=== PATIENT | male | born 1975 | race American Indian/Alaskan Native ===

== ENCOUNTER 2017-04-19 14:37 | Emergency (ER) | payer MEDICAID ==
[2017-04-19 16:36] LABS: Basophils % (Auto) 0.7 % (0.0-1.8); Hematocrit 37.3 % (35.5-45.6); Hemoglobin 12.1 gm/dl (11.8-15.2); Mean Corpuscular HGB Conc 33 % (32-34); Mean Corpuscular Hemoglobin 28 pg (28-32); Mean Corpuscular Volume 88 fl (84-94); Platelet Count 172 K/mm3 (140-440); Red Blood Count 4.26 M/mm3 (3.65-5.03); Red Cell Distribution Width 18.2 % (13.2-15.2); White Blood Count 8.3 K/mm3 (4.5-11.0)
[2017-04-19 17:00] LABS: Alanine Aminotransferase 8 units/L (7-56); Albumin 3.8 g/dL (3.9-5); Albumin/Globulin Ratio 0.8 %; Alkaline Phosphatase 45 units/L (35-129); Anion Gap 18 mmol/L; BUN/Creatinine Ratio 15.71; Blood Urea Nitrogen 11 mg/dL (9-20); Calcium 9.6 mg/dL (8.4-10.2); Carbon Dioxide 26 mmol/L (22-30); Chloride 104.4 mmol/L (98-107); Glucose 92 mg/dL (75-100); Potassium 4.6 mmol/L (3.6-5.0); Sodium 144 mmol/L (137-145); Total Protein 8.6 g/dL (6.3-8.2)
--- NOTE | 2017-04-19 17:13 | Emergency Department Report ---
ED Seizure HPI - General Chief Complaint: Medical Clearance Stated Complaint: SHAKING Time Seen by Provider: 04/19/17 16:26 Source: EMS Mode of arrival: Stretcher Limitations: Physical Limitation - History of Present Illness Initial Comments: 42 yo a past medical history seizures, GERD, and myoclonic presents to the hospital with increased tremors and insomnia. Patient was having blinking type seizures but that improved with starting Vimpat. Patient also takes Depakote, clonazepam, and baclofen medication. Patient now for the last 2 weeks has been having increased spasms of his muscles, tremors, and facial muscle spasms leading to insomnia for the past day. Despite outpatient medication adjustment symptoms have not improved. History of present illness obtained from patient's mother given underlying medical conditions. Mother requesting for us to recheck his urine since had a UTI in the past. Patient also recently discontinued clonidine and isosorbide since his blood pressure was running low. He continues to take metoprolol. Patient continues to have left lower facial spasms/possible focal seizure x 2 weeks - Related Data Home Medications Medication Instructions Recorded Confirmed Last Taken Baclofen [Lioresal] 10 mg PO HS 04/19/17 04/19/17 04/19/17 Divalproex Sodium [Depakote] 6 tab PO BID 04/19/17 04/19/17 04/19/17 Lacosamide [Vimpat] 150 mg PO Q12HR 04/19/17 04/19/17 04/19/17 Metoprolol Tartrate 25 mg PO DAILY 04/19/17 04/19/17 04/19/17 clonazePAM 1 mg PO BID 04/19/17 04/19/17 04/19/17 Allergies Allergy/AdvReac Type Severity Reaction Status Date / Time loratadine [From Claritin] Allergy Rash Verified 04/19/17 15:18 ED Review of Systems ROS: Stated complaint: SHAKING Other details as noted in HPI Comment: All other systems reviewed and negative Other: as per mother Constitutional: No fevers Respiratory: Denies cough wheezing shortness of breath Cardiovascular: Denies chest pain, palpitations, syncope GI: Denies abdominal pain, nausea, vomiting, diarrhea : Denies dysuria Musculoskeletal: Denies back pain Skin: Denies rash, lesions, erythema Neurologic: as per hpi Psychiatric: Denies suicidal ideation, hallucinations ED Past Medical Hx - Past Medical History Hx GERD: Yes Hx Seizures: Yes Additional medical history: Cerebral Palsy. myclonis - Surgical History Additional Surgical History: testicular - Social History Smoking Status: Never Smoker - Medications Home Medications: Home Medications Medication Instructions Recorded Confirmed Last Taken Type Baclofen [Lioresal] 10 mg PO HS 04/19/17 04/19/17 04/19/17 History Divalproex Sodium [Depakote] 6 tab PO BID 04/19/17 04/19/17 04/19/17 History Lacosamide [Vimpat] 150 mg PO Q12HR 04/19/17 04/19/17 04/19/17 History Metoprolol Tartrate 25 mg PO DAILY 04/19/17 04/19/17 04/19/17 History clonazePAM 1 mg PO BID 04/19/17 04/19/17 04/19/17 History ED Physical Exam - General Limitations: Physical Limitation - Other Other exam information: General: No limitations, patient is alert in no acute distress Head exam: Atraumatic, normocephalic Eyes exam: Normal appearance, pupils equal reactive to light, extraocular movements intact ENT: Moist mucous membrane, normal oropharynx Neck exam: Normal inspection, full range of motion, no meningismus nontender Respiratory exam: Clear to auscultation bilateral, no wheezes, rales, crackles Cardiovascular: Normal rate and rhythm, normal heart sounds Abdomen: Soft, nondistended, and nontender, with normal bowel sounds, no rebound, or guarding Extremity: Full range of motion normal inspection no deformity Back: Normal Inspection, full range of motion, no tenderness Neurologic: Alert, patient can respond and follow commands. Tremor is noted to head with muscle spasms to lower face and mouth area. Positive spasm with passive arm movement. Mild tremors to lower extremities as well. Psychiatric: normal affect, normal mood Skin: Warm, dry, intact ED Course Vital Signs 04/19/17 04/19/17 04/19/17 15:27 17:16 19:15 Temperature 98.5 F Pulse Rate 75 61 Respiratory 20 18 17 Rate Blood Pressure 142/81 Blood Pressure 147/87 [Right] O2 Sat by Pulse 97 98 95 Oximetry 04/19/17 04/19/17 04/19/17 19:27 19:31 19:45 Temperature 98.2 F Pulse Rate 70 79 79 Respiratory 17 16 17 Rate Blood Pressure 142/81 131/74 Blood Pressure 142/81 [Right] O2 Sat by Pulse 96 96 98 Oximetry 04/19/17 04/19/17 04/19/17 20:00 20:15 20:30 Temperature Pulse Rate 75 81 88 Respiratory 17 15 20 Rate Blood Pressure 117/75 129/75 121/77 Blood Pressure [Right] O2 Sat by Pulse 95 96 95 Oximetry 04/19/17 04/19/17 04/19/17 20:45 21:00 21:15 Temperature Pulse Rate 93 H 89 90 Respiratory 16 20 16 Rate Blood Pressure 130/83 115/79 120/74 Blood Pressure [Right] O2 Sat by Pulse 98 96 95 Oximetry 04/19/17 04/19/17 04/19/17 21:30 21:45 22:00 Temperature Pulse Rate 88 88 90 Respiratory 19 21 20 Rate Blood Pressure 118/75 120/87 122/89 Blood Pressure [Right] O2 Sat by Pulse 94 94 Oximetry 04/19/17 04/19/17 04/19/17 22:15 22:30 22:45 Temperature Pulse Rate 80 90 80 Respiratory 19 21 19 Rate Blood Pressure 124/89 121/79 119/68 Blood Pressure [Right] O2 Sat by Pulse Oximetry - Reevaluation(s) Reevaluation #1: 04/19/17 22:09 Patient was given Ativan and clonazepam as he did have some mild decrease in facial spasms. Patient was sitting given his evening dose of all his medication and Vimpat was given IV and patient took his own Depakote dose and received baclofen and additional clonazepam. - Consultations Consultation #1: 04/19/17 18:20 case d/w Dr Marion Neurologist fire investigation lieutenant for [facility]/Dr Conrad agrees with possible admission for EEG and med adujstment. She rec to contact fire investigation lieutenant neuro with transfer service 04/19/17 19:[address] Dumont with neurology transfer service to [facility]. Suggested increasing the dose of clonazepam to 2 g may continue 1 mg in the morning. Will leave a note for the epilepsy clinic to be charted patient for follow-up. Does not recommend any other medication adjustments at this time ED Medical Decision Making - Lab Data Result diagrams: 04/19/17 16:13 04/19/17 16:13 Lab Results 04/19/17 04/19/17 04/19/17 Range/Units 16:13 16:13 16:13 WBC 8.3 (4.5-11.0) K/mm3 RBC 4.26 (3.65-5.03) M/mm3 Hgb 12.1 (11.8-15.2) gm/dl Hct 37.3 (35.5-45.6) % MCV 88 (84-94) fl MCH 28 (28-32) pg MCHC 33 (32-34) % RDW 18.2 H (13.2-15.2) % Plt Count 172 (140-440) K/mm3 Lymph % (Auto) 36.3 H (13.4-35.0) % [place] % (Auto) 14.7 H (0.0-7.3) % Eos % (Auto) 1.0 (0.0-4.3) % Baso % (Auto) 0.7 (0.0-1.8) % Lymph # 3.0 (1.2-5.4) K/mm3 [place] # 1.2 H (0.0-0.8) K/mm3 Eos # 0.1 (0.0-0.4) K/mm3 Baso # 0.1 (0.0-0.1) K/mm3 Seg Neutrophils % 47.3 (40.0-70.0) % Seg Neutrophils # 3.9 (1.8-7.7) K/mm3 Sodium 144 (137-145) mmol/L Potassium 4.6 (3.6-5.0) mmol/L Chloride 104.4 (98-107) mmol/L Carbon Dioxide 26 (22-30) mmol/L Anion Gap 18 mmol/L BUN 11 (9-20) mg/dL Creatinine 0.7 L (0.8-1.5) mg/dL Estimated GFR > 60 ml/min BUN/Creatinine Ratio 15.71 % Glucose 92 (75-100) mg/dL Calcium 9.6 (8.4-10.2) mg/dL Magnesium (1.7-2.3) mg/dL Total Bilirubin 0.20 (0.1-1.2) mg/dL AST 12 (5-40) units/L ALT 8 (7-56) units/L Alkaline Phosphatase 45 (35-129) units/L Total Creatine Kinase (55-170) units/L Total Protein 8.6 H (6.3-8.2) g/dL Albumin 3.8 L (3.9-5) g/dL Albumin/Globulin Ratio 0.8 % Urine Color (Yellow) Urine Turbidity (Clear) Urine pH (5.0-7.0) Ur Specific [place] (1.003-1.030) Urine Protein (Negative) mg/dL Urine Glucose (UA) (Negative) mg/dL Urine Ketones (Negative) mg/dL Urine Blood (Negative) Urine Nitrite (Negative) Urine Bilirubin (Negative) Urine Urobilinogen (<2.0) mg/dL Ur Leukocyte Esterase (Negative) Urine WBC (Auto) (0.0-6.0) /HPF Urine RBC (Auto) (0.0-6.0) /HPF U Epithel Cells (Auto) (0-13.0) /HPF Phenytoin (10.0-20.0) mg/L Valproic Acid (50-100) ug/mL Phenobarbital 2.4 L (15.0-40.0) mg/L 04/19/17 04/19/17 04/19/17 Range/Units 16:13 16:59 17:15 WBC (4.5-11.0) K/mm3 RBC (3.65-5.03) M/mm3 Hgb (11.8-15.2) gm/dl Hct (35.5-45.6) % MCV (84-94) fl MCH (28-32) pg MCHC (32-34) % RDW (13.2-15.2) % Plt Count (140-440) K/mm3 Lymph % (Auto) (13.4-35.0) % [place] % (Auto) (0.0-7.3) % Eos % (Auto) (0.0-4.3) % Baso % (Auto) (0.0-1.8) % Lymph # (1.2-5.4) K/mm3 [place] # (0.0-0.8) K/mm3 Eos # (0.0-0.4) K/mm3 Baso # (0.0-0.1) K/mm3 Seg Neutrophils % (40.0-70.0) % Seg Neutrophils # (1.8-7.7) K/mm3 Sodium (137-145) mmol/L Potassium (3.6-5.0) mmol/L Chloride (98-107) mmol/L Carbon Dioxide (22-30) mmol/L Anion Gap mmol/L BUN (9-20) mg/dL Creatinine (0.8-1.5) mg/dL Estimated GFR ml/min BUN/Creatinine Ratio % Glucose (75-100) mg/dL Calcium (8.4-10.2) mg/dL Magnesium 1.90 (1.7-2.3) mg/dL Total Bilirubin (0.1-1.2) mg/dL AST (5-40) units/L ALT (7-56) units/L Alkaline Phosphatase (35-129) units/L Total Creatine Kinase 40 L (55-170) units/L Total Protein (6.3-8.2) g/dL Albumin (3.9-5) g/dL Albumin/Globulin Ratio % Urine Color Straw (Yellow) Urine Turbidity Clear (Clear) Urine pH 7.0 (5.0-7.0) Ur Specific [place] 1.011 (1.003-1.030) Urine Protein <15 mg/dl (Negative) mg/dL Urine Glucose (UA) Neg (Negative) mg/dL Urine Ketones Neg (Negative) mg/dL Urine Blood Neg (Negative) Urine Nitrite Neg (Negative) Urine Bilirubin Neg (Negative) Urine Urobilinogen < 2.0 (<2.0) mg/dL Ur Leukocyte Esterase Neg (Negative) Urine WBC (Auto) < 1.0 (0.0-6.0) /HPF Urine RBC (Auto) < 1.0 (0.0-6.0) /HPF U Epithel Cells (Auto) < 1.0 (0-13.0) /HPF Phenytoin 0.8 L (10.0-20.0) mg/L Valproic Acid 107.1 H (50-100) ug/mL Phenobarbital (15.0-40.0) mg/L - Medical Decision Making Patient continued to have tremors and intermittent possible focal seizures involving the lower part of the face/chewing After several hours of ED treatment patient is now sleeping without any more facial spasms or tremor. He received a total of clonazepam and 3 mg, Vimpat 150 mg, Depakote 750 mg, and baclofen. Patient discharged to follow-up with his neurologist. Stress to call tomorrow morning for further instructions regarding medication adjustment. Case was also discussed with [facility] group. - Differential Diagnosis tremors, seizures Critical Care Time: No Critical care attestation.: If time is entered above; I have spent that time in minutes in the direct care of this critically ill patient, excluding procedure time. ED Disposition Clinical Impression: Focal seizures, Tremor, Cerebral palsy Disposition: DC- TO HOME OR SELFCARE Is pt being admited?: No Does the pt Need Aspirin: No Condition: Stable Instructions: Recurrent Seizures Adult (ED) Additional Instructions: Increase your Klonopin to 2 mg at night and continue 1 mg dose in the a.m. Continue other medications as prescribed. Call your neurologist tomorrow for further advice and management. Return if symptoms worsen. Referrals: [facility] [Other] - 3-5 Days ([facility] neurologist. Call tomorrow for further advice regarding medication adjustment) Time of Disposition: 23:09
[2017-04-19] MEDS ORDERED: ATIVAN IV ONE ×2 (17:16→22:53)
[2017-04-19 17:24] LABS: Bilirubin,Urine NEG (Negative); Blood,Urine NEG (Negative); Ketones,Urine NEG (Negative); Leukocyte Esterase,Urine NEG (Negative); Nitrite,Urine NEG (Negative); Protein,Urine <15 mg/dL mg/dL (Negative); RBC,Urine < 1.0 /HPF (0.0-6.0); Urobilinogen,Urine < 2.0 mg/dL (<2.0); WBC,Urine < 1.0 /HPF (0.0-6.0)
[2017-04-19 17:32] LABS: Magnesium 1.9 mg/dL (1.7-2.3)
[2017-04-19 17:33] LABS: Valproate 107.1 ug/mL (50-100)
[2017-04-19] MEDS ORDERED: VIMPAT 150 MG in NACL 0.9% 100 ML IV ONE (20:39)
[2017-04-19 22:57] VITALS: BP 119/68
[2017-04-20] MEDS ORDERED: LIORESAL PO ONE (20:40)
== END 2017-04-20 03:27 | disposition home or self-care (01) ==
LOC: ED 14:37
DX: G40.209 Localization-related (focal) (partial) symptomatic epilepsy and epileptic syndromes with complex partial seizures, not intractable, without status epilepticus (principal); G25.2 Other specified forms of tremor; G80.9 Cerebral palsy, unspecified; Z88.8 Allergy status to other drugs, medicaments and biological substances
CPT/HCPCS: 36415; 51701; 80053; 80164; 80184; 80185; 81001; 82550; 82962; 83735; 85025; 96365; 96375; 99284; C9254; J2060